=== PATIENT | female | born 1995 | race Caucasian/White ===

== ENCOUNTER 2020-04-22 20:22 | Emergency (ER) | payer BC, OTHER ==
[~2020-04-22] VITALS: Ht 160 cm; Wt 59.0 kg
--- OUTSIDE RECORDS SUMMARY | 2020-04-22 22:04 | XMS ---
PreManage Notification: RYLEE TO Security Gage Maker Events No recent Security Events currently on file CRITERIA MET - [facility] - 2 Visits in 30 Days CARE PROVIDERS There are no care providers on record at this time. Manfred has no Care Guidelines for this patient. Ramón VISIT COUNT (12 MO.) 1 [facility] 1 [facility]. TOTAL 2 NOTE: Visits indicate total known visits. ED/C VISIT TRACKING (12 MO.) 04/22/2020 20:23 [facility] [place] TYPE: Emergency COMPLAINT: - ABD PAIN 04/21/2020 15:45 [facility] OR TYPE: Emergency DIAGNOSES: - ABD PAIN - Unspecified ovarian cyst, right side INPATIENT VISIT TRACKING (12 MO.) No inpatient visits to display in this time frame [email or web address]
== END 2020-04-22 22:02 | disposition home or self-care (01) ==
LOC: ED 20:22
DX: N83.201 Unspecified ovarian cyst, right side (principal)
CPT/HCPCS: 80053; 81001; 83690; 84703; 85025; 96374; 99284-25; J2405

== ENCOUNTER 2022-04-25 21:30 | Emergency (ER) | payer BC, OTHER ==
[~2022-04-25] VITALS: Ht 160 cm; Wt 59.0 kg
== END 2022-04-26 00:46 | disposition home or self-care (01) ==
LOC: ED 21:30
DX: O20.0 Threatened abortion (principal); Z3A.01 Less than 8 weeks gestation of pregnancy
CPT/HCPCS: 36415; 76801; 76817; 80053; 81001; 84702; 85025; 86900; 86901; 99284-25